=== PATIENT | female | born 1975 | race Caucasian/White ===

== ENCOUNTER 2018-01-07 03:53 | Emergency (ER) | payer SELFPAY ==
[~2018-01-07] VITALS: Ht 167.6 cm; Wt 68.0 kg
[2018-01-07 07:35] VITALS: BP 150/93
== END 2018-01-07 10:29 | disposition home or self-care (01) ==
LOC: ER 03:53 → EDBD 03:53 → ER 10:29
DX: M54.2 Cervicalgia (principal); M62.838 Other muscle spasm; Z90.710 Acquired absence of both cervix and uterus; V43.62XA Car passenger injured in collision with other type car in traffic accident, initial encounter; Y93.89 Activity, other specified; Y99.8 Other external cause status; Y92.410 Unspecified street and highway as the place of occurrence of the external cause
CPT/HCPCS: 72040